=== PATIENT | male | born 1960 | race Caucasian/White ===

== ENCOUNTER 2023-08-27 11:24 | Outpatient (OUT) | payer OTHER, SELFPAY ==
--- NOTE | 2023-08-27 13:10 | PM.STRESS ---
Stress Test Stress Test Requesting physician: CRISTOPHER COATES Procedure: Treadmill exercise test General Information: Reason for Stress Test: [Evaluation of the patient with known coronary artery disease.] Cardiac History and Risk Factors: [This is a 62-year-old patient with history of myocardial infarction two thousand twenty-one status post PTCA ?1 vessel. He has a positive family history with siblings and father having coronary disease. His primary risk factors include essential hypertension and hyperlipidemia.] Resting 12 - Lead Electrocardiogram: Normal sinus rhythm with a ventricular rate of 65 bpm. The MS interval is 0.24, QRS is 0.12 and the QT 0.40. There are small Q waves in the inferior limb leads and nonspecific ST-T wave changes. Stress Test: Protocol: [Henri protocol] Exercise Capacity: [This patient exercised to an above average exercise capacity. At peak exercise his heart rate was 141 bpm which is equivalent to ninety percent maximum predicted heart rate. At maximum speed the treadmill was at 3.4 miles per hour and fourteen percent grade. He exercised to a met level of 10.1.] Blood Pressure Response: [The patient demonstrated a normal blood pressure response to exercise. His blood pressure was 132/84, which increased to a peak of 158/86 and then gradually returned to baseline during the recovery phase.] Rhythm: [The patient remained in sinus rhythm during exercise with a rare PVC.] ST - Response: At peak exercise there were slight J-point depression with upsloping ST segments easily returning to baseline prior to 0.08 seconds. Patient Response: [At peak exercise the patient was dyspneic with lower extremity fatigue but denied chest pain.] Interpretation: There was no objective evidence of myocardial ischemia during exercise. He demonstrated normal heart rate and blood pressure response to exercise. He demonstrated above average exercise capacity for his age. His Oneal's treadmill score was seven placing him in the low risk category.
== END 2023-08-27 11:25 | disposition home or self-care (01) ==
PROVIDERS: PCP Family Medicine; Visit Provider Internal Medicine Cardiovascular Disease
DX: I25.10 Atherosclerotic heart disease of native coronary artery without angina pectoris (principal)
CPT/HCPCS: 93017